=== PATIENT | female | born 1955 | race Hispanic/Latino ===

== ENCOUNTER 2016-10-19 17:17 | Emergency (ER) | payer BC ==
[2016-10-19 17:27] VITALS: BMI 26.6
[2016-10-19 17:33] VITALS: RESP 19; TEMP 98.9; O2SAT 99
--- NOTE | 2016-10-19 18:12 | ED PDOC ---
Arrival/HPI - General Chief Complaint: Female Genitourinary Time Seen by Provider: 10/19/16 17:33 Historian: Patient - History of Present Illness Narrative History of Present Illness (Text): 10/19/16 19:48 61-year-old female presents today with 5 episodes of hematuria that started this morning. Patient denies abdominal pain. No nausea or vomiting. No fevers or chills. She denies back pain. Denies any history of kidney stones. Patient states she's noticed some bright red blood in the toilet bowl without clots. She denies vaginal bleeding. Patient states there is no blood when she wipes. Patient denies prior history of smoking or alcohol use. Denies dysuria or urinary frequency. Time/Duration: Other (1 day) Symptom Onset: Sudden Symptom Course: Intermittent Past Medical History - Provider Review Nursing Documentation Reviewed: Yes - Travel History Have you recently traveled outside [place] w/in the past 3 mons?: No - Cardiac Hx Cardiac Disorders: Yes Hx Hypertension: Yes - Pulmonary Hx Respiratory Disorders: No - Neurological Hx Neurological Disorder: No - HEENT Hx HEENT Disorder: No - Renal Hx Renal Disorder: No - Endocrine/Metabolic Hx Endocrine Disorders: No - Hematological/Oncological Hx Blood Disorders: No - Integumentary Hx Dermatological Disorder: No - Musculoskeletal/Rheumatological Hx Musculoskeletal Disorders: No - Gastrointestinal Hx Gastrointestinal Disorders: No - Genitourinary/Gynecological Hx Genitourinary Disorders: No - Psychiatric Hx Psychophysiologic Disorder: No Hx Substance Use: No - Anesthesia Hx Anesthesia: No Hx Anesthesia Reactions: No Family/Social History - Physician Review Nursing Documentation Reviewed: Yes Family/Social History: Unknown Family HX Smoking Status: Never Smoked Hx Alcohol Use: Yes Frequency of alcohol use: Socially Hx Substance Use: No Allergies/Home Meds Allergies/Adverse Reactions: Allergies No Known Allergies Allergy (Verified 10/19/16 17:27) Home Medications: Home Meds Medication Instructions Recorded Confirmed Aspirin [Aspirin] 1 tab PO DAILY 12/29/13 10/19/16 Atenolol [Atenolol] 50 mg PO DAILY 12/29/13 10/19/16 Telmisartan [Micardis] 1 tab PO DAILY 12/29/13 10/19/16 Review of Systems - Review of Systems Constitutional: absent: Fatigue, Fevers Respiratory: absent: SOB, Cough Cardiovascular: absent: Chest Pain, Palpitations Gastrointestinal: absent: Abdominal Pain, Nausea, Vomiting Genitourinary Female: Hematuria. absent: Dysuria, Frequency, Vaginal Bleeding, Vaginal Discharge Musculoskeletal: absent: Arthralgias, Back Pain, Neck Pain Skin: absent: Rash, Pruritis Neurological: absent: Headache, Dizziness Physical Exam Vital Signs Reviewed: Yes Vital Signs Temp Pulse Resp BP Pulse Ox 10/19/16 19:35 85 19 184/71 H 99 10/19/16 17:32 98.9 F 97 H 19 201/70 H 99 Temperature: Afebrile Blood Pressure: Hypertensive Pulse: Regular Respiratory Rate: Normal Appearance: Positive for: Well-Appearing, Non-Toxic, Comfortable Pain Distress: None Mental Status: Positive for: Alert and Oriented X 3 - Systems Exam Head: Present: Atraumatic Mouth: Present: Moist Mucous Membranes Neck: Present: Normal Range of Motion Respiratory/Chest: Present: Clear to Auscultation, Good Air Exchange. No: Respiratory Distress, Accessory Muscle Use Cardiovascular: Present: Regular Rate and Rhythm, Normal S1, S2. No: Murmurs Abdomen: Present: Normal Bowel Sounds. No: Tenderness, Distention, Peritoneal Signs, Rebound, Guarding Back: Present: Normal Inspection. No: CVA Tenderness, Midline Tenderness, Paraspinal Tenderness Neurological: Present: GCS=15 Skin: Present: Warm, Dry, Normal Color. No: Rashes Psychiatric: Present: Alert, Oriented x 3 Medical Decision Making ED Course and Treatment: 10/19/16 19:29 Patient is nontoxic well-appearing no distress slightly elevated blood pressure patient with a history of high blood pressure. ua: + blood, + tntc rbcs Case discussed with Dr. Way he will see the patient in the office now. will treat for UTI with nitrofurantoin; pt to be d/c'd directly to dr. man office. discussed all results in depth with patient. she will go to dr. man now. impression; hematuria, UTI go directly to dr. man office now. nitrofurantoin twice daily x 10 days increase fluids follow up with the primary care physician within the next 2 days return immediately if symptoms worsen,persist or if new symptoms develop - Lab Interpretations Lab Results: Lab Results 10/19/16 18:00: Urine Color Yellow, Urine Appearance Clear, Urine pH 6.0, Ur Specific Odin >= 1.030, Urine Protein 30 H, Urine Glucose (UA) Negative, Urine Ketones Negative, Urine Blood Large H, Urine Nitrate Negative, Urine Bilirubin Negative, Urine Urobilinogen 0.2, Ur Leukocyte Esterase Trace H, Urine RBC Tntc, Urine WBC 2 - 5, Ur Epithelial Cells 0 - 2, Urine Bacteria Small - Medication Orders Current Medication Orders: Discontinued Medications Nitrofurantoin Macrocrystals (Macrobid) 100 mg PO STAT STA Stop: 10/19/16 19:17 Disposition/Present on Arrival - Present on Arrival Any Indicators Present on Arrival: No History of DVT/PE: No History of Uncontrolled Diabetes: No Urinary Catheter: No History of Decub. Ulcer: No History Surgical Site Infection Following: None - Disposition Have Diagnosis and Disposition been Completed?: Yes Diagnosis: Hematuria, Urinary tract infection Disposition: HOME/ ROUTINE Disposition Time: 19:25 Patient Plan: Discharge Condition: GOOD Discharge Instructions (ExitCare): Urinary Tract Infection in Women (ED), Acute Hematuria (ED) Additional Instructions: go directly to dr. man office now. nitrofurantoin twice daily x 10 days increase fluids follow up with the primary care physician within the next 2 days return immediately if symptoms worsen,persist or if new symptoms develop. Prescriptions: Nitrofurantoin Macrocrystals [Macrobid] 100 mg PO BID #20 cap Referrals: Eleno Rodriguez MD [Primary Care Provider] - Follow up with primary Abe Way MD [Staff Provider] - Follow up with primary
[2016-10-19 18:33] LABS: URINE BILIRUBIN NEGATIVE (NEGATIVE); URINE BLOOD LARGE (NEGATIVE); URINE GLUCOSE (UA) NEGATIVE (NEGATIVE); URINE KETONE NEGATIVE (NEGATIVE); URINE LEUKOCYTE ESTERASE TRACE Leu/uL (NEGATIVE); URINE PROTEIN 30 mg/dL (<30 mg/dL); URINE UROBILINOGEN 0.2 E.U./dL (<1 E.U./dL)
[2016-10-19 18:35] LABS: URINE APPEARANCE CLEAR (CLEAR); URINE COLOR YELLOW (YELLOW)
[2016-10-19 19:02] LABS: URINE BACTERIA SMALL (NEG); URINE EPITHELIAL CELLS 0 - 2 /hpf (0-5); URINE RBC TNTC /hpf (0-2)
[2016-10-19 19:36] VITALS: BP 184/71; PULSE 85
== END 2016-10-19 19:37 | disposition home or self-care (01) ==
LOC: ED 17:17
DX: N39.0 Urinary tract infection, site not specified (principal); R31.9 Hematuria, unspecified

== ENCOUNTER 2016-10-23 17:51 | Emergency (ER) | payer BC ==
[2016-10-23 17:52] VITALS: BMI 26.6
[2016-10-23 18:05] VITALS: BP 125/74; PULSE 78; RESP 20; TEMP 98; O2SAT 99
[2016-10-23] MEDS ORDERED: TDAP Vaccine 0.5 mL Syr IM ONE (19:03)
--- NOTE | 2016-10-23 19:03 | ED PDOC ---
Arrival/HPI - General Chief Complaint: Finger,Hand,&Wrist Time Seen by Provider: 10/23/16 19:00 Historian: Patient - History of Present Illness Narrative History of Present Illness (Text): 10/23/16 19:00 61yr old female presents today with laceration to right 3rd finger after cutting finger with knife. pt states prior to arrival she was cleaning a knife with a sponge and she sustained superficial skin avulsion to the volar aspect of the right third finger. Patient unsure of her last tetanus shot. Denies numbness weakness or tingling in the extremity. Denies decreased range of motion of the finger. No medications have been taken for pain at home. Patient rates the pain as a 2 out of 10. No other complaints Past Medical History - Provider Review Nursing Documentation Reviewed: Yes - Travel History Have you recently traveled outside [place] w/in the past 3 mons?: No - Tetanus Immunization Tetanus Immunization: Unknown - Cardiac Hx Cardiac Disorders: Yes Hx Hypertension: Yes - Pulmonary Hx Respiratory Disorders: No - Neurological Hx Neurological Disorder: No - HEENT Hx HEENT Disorder: No - Renal Hx Renal Disorder: No - Endocrine/Metabolic Hx Endocrine Disorders: No - Hematological/Oncological Hx Blood Disorders: No - Integumentary Hx Dermatological Disorder: No - Musculoskeletal/Rheumatological Hx Musculoskeletal Disorders: No - Gastrointestinal Hx Gastrointestinal Disorders: No - Genitourinary/Gynecological Hx Genitourinary Disorders: No - Psychiatric Hx Psychophysiologic Disorder: No Hx Substance Use: No - Anesthesia Hx Anesthesia: No Hx Anesthesia Reactions: No Family/Social History - Physician Review Nursing Documentation Reviewed: Yes Family/Social History: Unknown Family HX Smoking Status: Never Smoked Hx Alcohol Use: Yes Hx Substance Use: No Allergies/Home Meds Allergies/Adverse Reactions: Allergies No Known Allergies Allergy (Verified 10/23/16 18:05) Home Medications: Home Meds Medication Instructions Recorded Confirmed Aspirin [Aspirin] 1 tab PO DAILY 12/29/13 10/23/16 Atenolol [Atenolol] 50 mg PO DAILY 12/29/13 10/23/16 Telmisartan [Micardis] 1 tab PO DAILY 12/29/13 10/23/16 Review of Systems - Review of Systems Constitutional: absent: Fatigue, Fevers Respiratory: absent: SOB, Cough Cardiovascular: absent: Chest Pain Gastrointestinal: absent: Abdominal Pain, Nausea, Vomiting Musculoskeletal: Arthralgias Skin: Laceration. absent: Pruritis Neurological: absent: Headache Psychiatric: absent: Anxiety, Depression Physical Exam Vital Signs Reviewed: Yes Vital Signs Temp Pulse Resp BP Pulse Ox 10/23/16 18:04 98.0 F 78 20 125/74 99 Temperature: Afebrile Blood Pressure: Normal Pulse: Regular Respiratory Rate: Normal Appearance: Positive for: Well-Appearing, Non-Toxic, Comfortable Pain Distress: None Mental Status: Positive for: Alert and Oriented X 3 - Systems Exam Head: Present: Atraumatic Mouth: Present: Moist Mucous Membranes Neck: Present: Normal Range of Motion Respiratory/Chest: Present: Clear to Auscultation, Good Air Exchange. No: Respiratory Distress, Accessory Muscle Use Cardiovascular: Present: Regular Rate and Rhythm, Normal S1, S2. No: Murmurs Upper Extremity: Present: Normal ROM, NORMAL PULSES, Tenderness (right 3rd finger; + superficial 2mm x 1mm linear superficial skin avulsion. + minimal bleeding noted. ), Neurovascularly Intact, Capillary Refill < 2s. No: Swelling , Erythema, Deformity Neurological: Present: Speech Normal Skin: Present: Warm, Dry, Normal Color. No: Rashes Psychiatric: Present: Alert, Oriented x 3 Medical Decision Making ED Course and Treatment: 10/23/16 19:05 Patient is nontoxic well appearing in no distress. Vital signs are stable. Wound irrigated well with high pressure irrigation Tetanus updated Patient with superficial skin avulsion. No suture repair required. Gelfoam applied; bleeding controlled. and dressing applied Patient was advised to keep the wound clean and dry, apply bacitracin twice daily. Advised to return immediately if signs of infection develop or return if any other concerning symptoms develop Patient verbalizes understanding of discharge instructions and need for immediate followup. Impression: Skin avulsion, finger Motrin every 6 hours as needed for pain Keep the wound clean and dry, apply bacitracin twice daily Return immediately if signs of infection develop: High fevers, increasing pain, redness, swelling, purulent discharge Followup with primary care physician within the next 2 days Return if any other concerning symptoms develop Disposition/Present on Arrival - Present on Arrival Any Indicators Present on Arrival: No History of DVT/PE: No History of Uncontrolled Diabetes: No Urinary Catheter: No History of Decub. Ulcer: No History Surgical Site Infection Following: None - Disposition Have Diagnosis and Disposition been Completed?: Yes Diagnosis: Avulsion of skin of finger Disposition: HOME/ ROUTINE Disposition Time: 19:00 Patient Plan: Discharge Patient Problems: Current Active Problems Problem Status Onset Avulsion of skin of finger Acute Condition: GOOD Discharge Instructions (ExitCare): Skin Avulsion (ED) Additional Instructions: Motrin every 6 hours as needed for pain Keep the wound clean and dry, apply bacitracin twice daily Return immediately if signs of infection develop: High fevers, increasing pain, redness, swelling, purulent discharge Followup with primary care physician within the next 2 days Return if any other concerning symptoms develop Referrals: Fahad Ashford MD [Staff Provider] - Follow up with primary Montse Schwab MD [Staff Provider] - Follow up with primary
== END 2016-10-23 19:42 | disposition home or self-care (01) ==
LOC: ED 17:51
DX: S61.212A Laceration without foreign body of right middle finger without damage to nail, initial encounter (principal); W26.0XXA Contact with knife, initial encounter; Y93.G1 Activity, food preparation and clean up; Y92.89 Other specified places as the place of occurrence of the external cause; Z23 Encounter for immunization